=== PATIENT | female | born 1980 | race American Indian/Alaskan Native ===

== ENCOUNTER 2019-08-11 15:00 | Emergency (ER) | payer OTHER, BC ==
[2019-08-11 15:13] VITALS: BP 122/69
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
== END 2019-08-11 17:00 | disposition home or self-care (01) ==
LOC: ED 15:00
DX: M62.830 Muscle spasm of back (principal); M54.2 Cervicalgia; Z90.89 Acquired absence of other organs; Z79.899 Other long term (current) drug therapy; V49.49XA Driver injured in collision with other motor vehicles in traffic accident, initial encounter; Y93.89 Activity, other specified; Y92.410 Unspecified street and highway as the place of occurrence of the external cause; Y99.8 Other external cause status
CPT/HCPCS: 72040